=== PATIENT | female | born 1980 | race Caucasian/White ===

== ENCOUNTER 2017-09-22 01:15 | Inpatient (IN) | payer BC ==
[~2017-09-22] VITALS: Ht 162.6 cm; Wt 74.8 kg
[~2017-09-22 01:15] MED LIST: DOCU240C67 PO; IBUP600T22 PO; Lanolin TP; PREN-75 PO; TUCKS TP
[2017-09-22] MEDS ORDERED: LR(*) 1000 ML BAG 1,000 ML IV PRN (01:16)
[2017-09-22 02:05] VITALS: BP 117/84; Ht 162.6 cm; Wt 74.8 kg
[2017-09-22] MEDS ORDERED: FAMOTIDINE(*) 20MG/50ML PREMIX 50 ML IVPB PRN (02:12)
[2017-09-22] MEDS ORDERED: LIDOCAINE 1% LOCAL 300 MG/30ML INJ PRN (02:15)
[2017-09-22] MEDS ORDERED: cefOXitin/DEX(*) 2GM/50ML PREM 50 ML IVPB PRN (02:15)
[2017-09-22] MEDS ORDERED: METOCLOPRAMIDE 10 MG/2 ML SDV IVP PRN (02:15)
[2017-09-22] MEDS ORDERED: fentaNYL CITR 100 MCG/2 ML AMP IVP PRN (02:15)
[2017-09-22] MEDS ORDERED: LIDOCAINE/SOD BICARB 8.4% SYR SC PRN (02:15)
[2017-09-22] MEDS ORDERED: OXYTOCIN 30 UNIT/D5LR 500 ML 500 ML ONE (02:18)
--- NOTE | 2017-09-22 02:23 | History & Physical ---
History of Present Illness Age of Patient: 36 : 3 Para or TPAL: 2 EDC per LMP: Oct 06, 2017 Estimated Gestational Age: 38 Chief Complaint Leaking fluid History of Present Illness Presented with contractions and wondering if her water was broke. Amnisure positive. uncomplicated. Past Medical, Surgical, Family and Obstetric Histories reviewed. Please see ACOG chart. History Allergies: Coded Allergies: No Known Drug Allergies (Unverified , 05/21/16) Social History: Denies Use of Alcohol, tobacco, or recreational drugs. Med Rec Home Meds Active Scripts [Lanolin] 7 GM OINT No Conflict Check, 0 GM TP PRN Y for DISCOMFORT FOR NURSING MOTHERS, TUBE Prov:SANDRA COPPOLA MD 05/22/16 Ibuprofen (IBUPROFEN) 600 Mg Tablet, 600 MG PO Q6H Y for PAIN for 10 Days, TAB Prov:SANDRA COPPOLA MD 05/22/16 Glycerin/Witch Yolanda [place] (PREPARATION H) 1 Pkg Pad, 0 PKG TP PRN Y for PAIN for 10 Days, PAD Prov:SANDRA COPPOLA MD 05/22/16 Docusate Calcium (DOCUSATE CALCIUM) 240 Mg Capsule, 240 MG PO BID for 10 Days, CAPSULE Prov:SANDRA COPPOLA MD 05/22/16 Vit#96/Ferrous Fum/Fa ( TABLET) 1 Each Tablet, 1 EACH PO DAILY for 90 Days, TAB 3 Refills Prov:SANDRA COPPOLA MD 05/22/16 Review of Systems All Systems Reviewed/Normal: Yes, Except as Noted Exam General Exam Vital Signs Vital Signs Date Time Temp Pulse Resp B/P (MAP) Pulse Ox O2 Delivery O2 Flow Rate FiO2 09/22/17 02:05 98.4 68 18 117/84 (95) 96 Room Air General Apperance: Alert/Awake/No Acute Distress Neuro: No Gross deficits Respiratory: No Respiratory Distress Abdomen: Soft, Non-Tender, Non-Distended, Gravid - Non-Tender Integumentary: Skin Intact without Lesions or Rash Psychological: Alert & Oriented X3, Appropriate Mood & Affect Cervical Dialation: 4 Cervical Effacement (%): 70 Station: -2 Presentation: Vertex Fetus Heart Tone Variabilty: Moderate FHT Accelerations: 15X15 FHT Category: I Medical Decision Making VTE Prophylasis: Adult Deep Vein Thrombosis/Pulmonary: No Pharmacological Contraindicati: Pt at Low Risk for VTE Mechanical Contraindications: Pt at Low Risk for VTE Assessment and Plan CASING BUILDER Plan: Routine Labor Care Problems: (1) 38 weeks gestation of Status: Acute (2) Active labor at term Status: Acute RAMIN FARR MD Sep 22, 2017 02:23
[2017-09-22 02:39] LABS: PLATELET COUNT, AUTOMATED 171 K/uL (150-450)
[2017-09-22] MEDS ORDERED: ONDANSETRON 4 MG/2 ML VIAL IVP PRN (03:40)
[2017-09-22] MEDS ORDERED: ACETAMINOPHEN 500 MG TAB PO PRN (03:40)
[2017-09-22] MEDS ORDERED: LIDOCAINE/PF 2% 200MG/10ML AMP 200 MG/10 ML AMPUL EPI PRN (03:45)
[2017-09-22] MEDS ORDERED: LIDO/EPI 2% MPF 1:200,000 20ML EPI PRN (03:45)
[2017-09-22] MEDS ORDERED: FENTANYL/ROPIVACAINE 100 ML BAG EPI PRN (03:45)
[2017-09-22] MEDS ORDERED: EPIDURAL KEYS XX PRN (03:45)
[2017-09-22] MEDS ORDERED: BUPIVACAINE 0.25% MPF INJ EPI PRN (03:45)
[2017-09-22] MEDS ORDERED: BUPIVACAINE 0.5% INJ 30ML VIAL EPI PRN (03:45)
[2017-09-22] MEDS ORDERED: fentaNYL CITR 100 MCG/2 ML AMP IT PRN (03:45)
[2017-09-22] MEDS ORDERED: ePHEDrine 25 MG/5 ML DISP.SYR IVP ONE (03:53)
[2017-09-22] MEDS: LR(*) 1000 ML BAG 1,000 ML IV SCH ×3 (04:01→05:49)
[2017-09-22] MEDS ORDERED: PHENYLEPHRINE/NS/PF 0.4MG/10ML ONE (04:40)
--- NOTE | 2017-09-22 04:53 | Anesthesia OB Pre-Anes Eval ---
History of Present Illness Anesthesia Start Date: Sep 22, 2017 Anesthesia Start Time: 04:00 OB Anesthesia Diagnosis: spontaneous ROM EDC: Oct 06, 2017 : 3 Para: 2 Vital Signs: Vital Signs 09/22/17 02:05 Temp 98.4 Pulse 68 Resp 18 B/P (MAP) 117/84 (95) Pulse Ox 96 O2 Delivery Room Air Pain Ratin Heart Tones: 138 Result Diagram: 09/22/17 0220 Height (Inches): 64.00 Weight (Pounds): 165 BMI Calculated: 28.32 Past Medical History Medical History: no pertinent history Previous Anesthesia: epidural Attended Childbirth Classes?: No Hx Anesthesia Reactions: No Hx Family Anesthesia Reaction: No Home Meds Active Scripts [Lanolin] 7 GM OINT No Conflict Check, 0 GM TP PRN Y for DISCOMFORT FOR NURSING MOTHERS, TUBE Prov:SANDRA COPPOLA MD 05/22/16 Ibuprofen (IBUPROFEN) 600 Mg Tablet, 600 MG PO Q6H Y for PAIN for 10 Days, TAB Prov:SANDRA COPPOLA MD 05/22/16 Glycerin/Witch Yolanda [place] (PREPARATION H) 1 Pkg Pad, 0 PKG TP PRN Y for PAIN for 10 Days, PAD Prov:SANDRA COPPOLA MD 05/22/16 Docusate Calcium (DOCUSATE CALCIUM) 240 Mg Capsule, 240 MG PO BID for 10 Days, CAPSULE Prov:SANDRA COPPOLA MD 05/22/16 Vit#96/Ferrous Fum/Fa ( TABLET) 1 Each Tablet, 1 EACH PO DAILY for 90 Days, TAB 3 Refills Prov:SANDRA COPPOLA MD 05/22/16 Allergies: Coded Allergies: No Known Drug Allergies (Unverified , 05/21/16) Anesthesia OB ROS Neurological: No migraines/headaches, No seizures, No neuropathy, No other ENT: Denies Tooth caps, Denies Loose teeth, Denies Chipped teeth, Denies Dentures, Denies Bridges, Denies Retainers, Denies Veneers, Denies Implants, Denies Tongue ring, Denies Other Pulmonary: No asthma, No smoker (pks/day/yrs), No other Airway Class: ll Cardiovascular ROS: No edema, No arrhythmia, No other GI ROS: clear liquids Last Solids Date: Sep 21, 2017 Last Solids Time: 18:00 ROS: No Herpes, No STD(s), No Liver Disease, No Renal Disease, No Other Endocrine ROS: No diabetes, No gestational diabetes, No thyroid disorder, No other Musculoskeletal ROS: scoliosis ASA Classification: 2 Assessment and Plan Anesthesia Plan: RICHARD BRITTON CRNA Sep 22, 2017 04:53
--- NOTE | 2017-09-22 04:57 | Procedure Note ---
Anesthetic Placement Note Anesthesia Plan: CSE Permit for Anesthesia Signed: Yes Anesthesia Technique: Patient Sitting Anesthesia Prep: Chlorhexidine Interspace: L 4-5 Local Anesthetic: 1% Lidocaine Amount Local - cc's: 3 Anesthesia Needle: 17g Touhkalyani/Jhonnyff Anesthesia Attempts: 1 Loss of Resistance: Normal Saline Depth of DAVE (cm): 5 Epidural Needle Placement: No CSF, No Blood, No Parasthesia Intrathecal Needle: 27 Gauge Pencan Cerebral Spinal Fluid: Yes, Clear Catheter Insertion (cm): 10 Catheter Type: Wilson - Spring Wound Epidural Dressing: Tegaderm, Tape Anesthesia Tray: Lot Number ([id number]), Expiration Date (04/05), Reference Number ([id number]) Anesthesia Medications: Intrathecal Dose: mcg Fentanyl (10), mg Marcaine MPF (2.5), Time (0416) Epidural Test Dose: 1.5 Lido/Epi (1:200,000), Dose - mL (3), Time (0418) Epidural Infusion: 0.2% Ropivicaine, With Fentanyl 2mcg/ml, Start Time: (0437) Epidural Pump Setting: Bolus Dose - mL (6), Lockout - Minutes (20), Maintenance Rate - mL/hr (6), Maximum per Hour - mL (24) Complications: None Comment: hypotension, Ephedrine given, HR increased. Phenylephrine 40 mcg RICHARD SINGH CRNA Sep 22, 2017 04:56
[2017-09-22] MEDS ORDERED: OXYTOCIN 30 UNIT/D5LR 500 ML 500 ML IV PRN (06:38)
[2017-09-22] MEDS: OXYTOCIN 30 UNIT/D5LR 500 ML 500 ML IV PRN ×2 (06:40→15:50)
--- NOTE | 2017-09-22 07:37 | Labor Progress Note ---
Labor Subjective Progress Notes Subjective comfortable with epidural Labor Objective Vital Signs Vital Signs Date Time Temp Pulse Resp B/P (MAP) Pulse Ox O2 Delivery O2 Flow Rate FiO2 09/22/17 02:05 98.4 68 18 117/84 (95) 96 Room Air Cervical Dialation: 6 (rn) Uterine Contractions(Q min): 3 Fetus Heart Tones: 130 FHT Category: I Other Result Diagram: 09/22/17 0220 Assessment and Plan Problems: (1) 38 weeks gestation of Status: Acute (2) Active labor at term Status: Acute Assessment & Plan: making progress anticipate vaginal delivery SAILAJA BONILLA MD Sep 22, 2017 07:37
[2017-09-22] MEDS ORDERED: ACETAMINOPHEN 325 MG TAB PO PRN (10:25)
[2017-09-22] MEDS ORDERED: MAGNESIUM HYDROXIDE* 30ML UDCP PO PRN (10:25)
[2017-09-22] MEDS ORDERED: GLYCERIN/WITCH HAZEL LEAF 1 PK TP PRN (10:25)
[2017-09-22] MEDS ORDERED: HYDROCORTISONE 2.5% CR 30GM TB PR PRN (10:25)
[2017-09-22] MEDS ORDERED: LANOLIN OINT 7 GM TUBE TP PRN (10:25)
[2017-09-22] MEDS ORDERED: HYDROmorphone HCL 2 MG TAB PO PRN (10:25)
[2017-09-22] MEDS ORDERED: BENZOCAINE 20% 60 ML BTL TP PRN (10:25)
--- NOTE | 2017-09-22 10:29 | OB Delivery Note ---
Delivery Note Vaginal Delivery Type: Spont. Vaginal Delivery Delivery Date: Sep 22, 2017 Delivery Time: 10:13 Estimated Gestational Age(wks): 38 Delivery Anesthesia: Epidural Sex: Female Weight (gms): 3188 [place] Apgars: 1 Minute (8), 5 Minute (8) Estimated Blood Loss: 400 Notes: spontaneous labor, received epidural, augmented with pitocin progressed to complete, pushed effectively, delivered without complications. No lacerations Director Patient Accounting in Attendence: No Copies to: SAILAJA BONILLA MD, JOHN MD Sep 22, 2017 10:29
[2017-09-22] MEDS ORDERED: IBUP800T37 PO (10:31)
[2017-09-22] MEDS ORDERED: HYDR2TAB4 PO (10:31)
--- NOTE | 2017-09-22 10:32 | OB/GYN Discharge Summary ---
Discharge Summary Reason for Hosp/Final Diag: (1) 38 weeks gestation of Status: Acute (2) Active labor at term Status: Acute (3) care and examination immediately after delivery Status: Acute Hospital Course & Plan: vaginal delivery on day 1,Pain controlled, Tolerating diet and activity. Baby . Normal lochia. Lates Vital Signs Vital Signs Date Time Temp Pulse Resp B/P (MAP) Pulse Ox O2 Delivery O2 Flow Rate FiO2 09/22/17 02:05 98.4 68 18 117/84 (95) 96 Room Air Weight (Pounds): 165 Result Diagram: 09/22/17 0220 Condition: Improved Discharge: Home, Self Alf Meds Active Scripts Ibuprofen (IBUPROFEN) 800 Mg Tablet, 1 TAB PO Q8H, #30 TAB 0 Refills Take with food every 8 hours. Prov:SAILAJA LEO MD 09/22/17 Hydromorphone Hcl (HYDROMORPHONE HCL) 2 Mg Tablet, 2-4 MG PO Q4H for PAIN, #20 TAB 0 Refills Prov:SAILAJA LEO MD 09/22/17 [Lanolin] 7 GM OINT No Conflict Check, 0 GM TP PRN Y for DISCOMFORT FOR NURSING MOTHERS, TUBE Prov:SANDRA COPPOLA MD 05/22/16 Ibuprofen (IBUPROFEN) 600 Mg Tablet, 600 MG PO Q6H Y for PAIN for 10 Days, TAB Prov:SANDRA COPPOLA MD 05/22/16 Glycerin/Witch Yolanda [place] (PREPARATION H) 1 Pkg Pad, 0 PKG TP PRN Y for PAIN for 10 Days, PAD Prov:SANDRA COPPOLA MD 05/22/16 Docusate Calcium (DOCUSATE CALCIUM) 240 Mg Capsule, 240 MG PO BID for 10 Days, CAPSULE Prov:SANDRA COPPOLA MD 05/22/16 Vit#96/Ferrous Fum/Fa ( TABLET) 1 Each Tablet, 1 EACH PO DAILY for 90 Days, TAB 3 Refills Prov:SANDRA COPPOLA MD 05/22/16 Follow up with: Dr. Leo [phone] Follow up in: 6 wks PP or PO Discharge Diet: As Tolerates Discharge Activity: Pelvic Rest Copies to: SAILAJA LEO MD, JOHN MD Sep 22, 2017 10:32
--- NOTE | 2017-09-22 10:39 | Anesthesia Progress Note ---
Assessment and Plan Anesthesia Plan: CSE Anesthesia Stop Day: Sep 22, 2017 Anesthesia Stop Time: 10:30 Epidural Catheter Removal: Removed Catheter Intact, Yes, Removed by: (RN) Removal Date: Sep 22, 2017 Condition Vital Signs 09/22/17 02:05 Temp 98.4 Pulse 68 Resp 18 B/P (MAP) 117/84 (95) Pulse Ox 96 O2 Delivery Room Air RICHARD SINGH CRNA Sep 22, 2017 10:39
[2017-09-22] MEDS: IBUPROFEN 800 MG TAB PO SCH ×2 (11:25→19:45)
[2017-09-22 17:00] VITALS: BP 108/69
[2017-09-22] MEDS ORDERED: SALINE 0.65% NAS SPR 44 ML BTL PRN (17:10)
[2017-09-22 19:30] VITALS: BP 110/72
[2017-09-22] MEDS: DOCUSATE CALCIUM 240 MG CAP PO SCH (19:45)
[2017-09-22 22:10] VITALS: BP 137/76
[2017-09-23 03:30] VITALS: BP 124/76
[2017-09-23] MEDS: IBUPROFEN 800 MG TAB PO SCH (03:33)
[2017-09-23 07:40] VITALS: BP 119/78
[2017-09-23] MEDS: DOCUSATE CALCIUM 240 MG CAP PO SCH (08:19)
--- NOTE | 2017-09-23 08:41 | OB/GYN Progress Note ---
OB Subjective Progress Notes Subjective Pain controlled, Tolerating diet and activity. Baby . Normal lochia. GI: POS Flatus, NEG Nausea, NEG Vomiting : Voiding Well Pain: Mild OB Objective Physical Exam Vital Signs Date Time Temp Pulse Resp B/P (MAP) Pulse Ox O2 Delivery O2 Flow Rate FiO2 09/23/17 07:40 97.8 83 18 119/78 (92) Room Air 09/22/17 02:05 96 General Appearance: Alert/Awake/No Acute Distress Neurological: No Gross deficits Cardiovascular: Regular Rate and Rhythm Respiratory: No Respiratory Distress, Clear to Auscultation Abdomen: Fundus Firm Extremities: No Edema Integumentary: Skin Intact without Lesions or Rash Psychological: Alert & Oriented X3, Appropriate Mood & Affect Result Diagram: 09/23/17 0612 Assessment and Plan Problems: (1) 38 weeks gestation of Status: Acute (2) Active labor at term Status: Acute (3) care and examination immediately after delivery Status: Acute Assessment & Plan: Pain controlled, Tolerating diet and activity. Baby . Normal lochia. SAILAJA BONILLA MD Sep 23, 2017 08:41
[2017-09-23] MEDS ORDERED: MULTIVITAMINS (PRENATAL) TAB PO SCH (09:00)
[2017-09-23] MEDS ORDERED: INFLUENZA VIRUS VAC 0.5 ML SYR IM ONLY ONE (10:25)
[2017-09-23] MEDS ORDERED: DIPHTH/TETANUS/ACEL. PERTUSSIS IM ONLY ONE (10:25)
[2017-09-23] MEDS ORDERED: MEASLES,MUMP,RUBELLA VAC 0.5ML SUBQ ONE (10:25)
--- NOTE | 2017-09-23 12:54 | Anesthesia Post Eval Note ---
Anesthesia Post Eval Note Vital Signs 09/22/17 09/23/17 02:05 07:40 Temp 97.8 Pulse 83 Resp 18 B/P (MAP) 119/78 (92) Pulse Ox 96 O2 Delivery Room Air Pt able to participate in Eval: Yes Cardiovascular Status: Satisfactory Respiratory Status: Satisfactory Pain Managment: Satisfactory PO Nausea/Vomiting: Satisfactory Temperature Management: Satisfactory Mental Status: Satisfactory, Alert, Oriented X3 Post-Op Hydration Status: Tolerating PO Well, Voiding w/o Difficulty Anesthesia Type: RICHARD BRITTON CRNA Sep 23, 2017 12:54
== END 2017-09-23 11:10 | disposition home or self-care (01) | DRG 775 ==
LOC: OBSVTOIN 01:15 → OB 01:15
PROVIDERS: ADMIT Obstetrics & Gynecology; ATTEND Obstetrics & Gynecology
PROC: 10E0XZZ Delivery of Products of Conception, External Approach (ICD-10-PCS; principal; 2017-09-22)
DX: O80 Encounter for full-term uncomplicated delivery (principal); Z37.0 Single live birth; Z3A.38 38 weeks gestation of pregnancy
CPT/HCPCS: 36415; 84112; 85025; 85027; 86850; 86900; 86901; J2370; J2590; J3010; J7120; S0020

== ENCOUNTER → 2018-01-18 | Outpatient (CLI) | payer OTHER, BC ==
[2017-09-22 02:05] VITALS: BMI 28.3
[~2018-01-18] MED LIST changes: +HYDR2TAB4 PO; +IBUP800T37 PO
== END ==
LOC: LAB 12:10
PROVIDERS: ATTEND Nurse Practitioner
DX: Z02.9 Encounter for administrative examinations, unspecified (principal)
CPT/HCPCS: 36415

== ENCOUNTER 2018-05-04 20:05 | Emergency (ER) | payer BC, OTHER ==
[2017-09-22 02:05] VITALS: Wt 57.6 kg
[~2018-05-04 20:05] MED LIST changes: -PREN-75 PO; +PREN1TAB29 PO
--- NOTE | 2018-05-04 20:22 | ER Report ---
History and Physical Time Seen By MD: 20:22 Hx. of Stated Complaint: pt spoke with dr ohara today on the phone. pt reports spotting since wednesday, in the spotting was pink mucousy. today the spotting became darker today. dr ohara reccomended pt come in for ultra sound tonight. pt reports she is scheduled for an ultrasound on wednesday, but does not want to wait that long. HPI/ROS CHIEF COMPLAINT: vaginal bleeding during early . HISTORY OF PRESENT ILLNESS: This is a 37 year old female. She is estimating 9 weeks . She has been having spotting for two days, seeming to increase from pink mucous to a darker color. She had a quantitative HCG level at Dr. Lindsey's office yesterday and is scheduled to have a second level drawn tomorrow. She is nervous and just wanted to know what was happening. She talked to Dr. Mitul carroll and he recommended coming for ultrasound. No other bleeding or bruising. Had a little loose stools today. Allergies: Coded Allergies: No Known Drug Allergies (Unverified , 05/21/16) Home Meds Active Scripts Vit#96/Ferrous Fum/Fa ( TABLET) 1 Each Tablet, 1 EACH PO DAILY for 90 Days, TAB 3 Refills Prov:SANDRA COPPOLA MD 05/22/16 Discontinued Scripts Ibuprofen (IBUPROFEN) 800 Mg Tablet, 1 TAB PO Q8H, #30 TAB 0 Refills Take with food every 8 hours. Prov:SAILAJA BONILLA MD 09/22/17 Hydromorphone Hcl (HYDROMORPHONE HCL) 2 Mg Tablet, 2-4 MG PO Q4H for PAIN, #20 TAB 0 Refills Prov:SAILAJA BONILLA MD 09/22/17 [Lanolin] 7 GM OINT No Conflict Check, 0 GM TP PRN PRN for DISCOMFORT FOR NURSING MOTHERS, TUBE Prov:SANDRA COPPOLA MD 05/22/16 Glycerin/Witch Yolanda [place] (PREPARATION H) 1 Pkg Pad, 0 PKG TP PRN PRN for PAIN for 10 Days, PAD Prov:SANDRA COPPOLA MD 05/22/16 Docusate Calcium (DOCUSATE CALCIUM) 240 Mg Capsule, 240 MG PO BID for 10 Days, CAPSULE Prov:SANDRA COPPOLA MD 11/4/16 Reviewed Nurses Notes: Yes Hx Smoking: No Smoking Status: Never Smoker Exposure to Second Hand Smoke?: No Hx Substance Use Disorder: No Hx Alcohol Use: No Constitutional Vital Sign - Last 24 Hours 05/04/18 05/04/18 05/04/18 05/04/18 20:05 20:11 20:13 20:20 Temp 97.9 Pulse ??? 90 91 Resp 16 B/P (MAP) 129/89 (102) 129/89 Pulse Ox 97 97 O2 Delivery Room Air 05/04/18 05/04/18 05/04/18 05/04/18 20:30 20:35 20:50 20:55 Pulse 98 86 83 B/P (MAP) 122/90 (101) Pulse Ox 97 97 95 05/04/18 05/04/18 05/04/18 05/04/18 21:00 21:10 21:25 21:30 Pulse 85 107 B/P (MAP) 112/73 (86) 111/80 (90) Pulse Ox 97 98 05/04/18 05/04/18 05/04/18 05/04/18 21:40 21:55 22:00 22:10 Pulse 94 94 87 B/P (MAP) 107/78 (88) Pulse Ox 97 95 94 05/04/18 05/04/18 05/04/18 05/04/18 22:25 22:30 22:40 22:45 Pulse 85 86 84 B/P (MAP) 109/72 (84) Pulse Ox 95 96 95 Physical Exam General Appearance: Alert, no acute distress, Skin: No bruising or lesions. Pelvic exam deferred at this time after patient had her ultrasound. Medical Decision Making EKG/Imaging Imaging ultrasound: Indication: First trimester bleeding. Technique: Transvaginal imaging, with Doppler. Comparison: None. Findings: A gestational sac is present in the upper endometrial cavity. The mean sac diameter is 1.5 cm, corresponding to 6 weeks 3 days. A yolk sac is also present. No pole or cardiac activity are identified at the present time. There may be minimal subchorionic hemorrhage adjacent to the sac. The uterus is otherwise unremarkable. The right ovary measures 3.3 x 2.4 x 2.0 cm. There appears to be a small corpus luteum cyst. The left ovary measures 2.7 x 1.3 x 1.2 cm and appears un remarkable. Doppler evaluation demonstrates no evidence of ovarian torsion. No adnexal mass or fluid collection is identified. There is minimal free fluid in the cul-de-sac. IMPRESSION: A gestational sac is present in the endometrial cavity. The mean sac diameter corresponds to a gestational age of 6 weeks 3 days. However, neither a pole nor cardiac activity are observed at the present time. Additional clinical correlation and short interval follow-up are recommended. Report Dictated By: Jeremi Cox MD at 05/04/2018 10:12 PM ED Course/Re-evaluation ED Course Reviewed the findings of ultrasound with the patient. Appears that this is a non-viable . She will follow-up with Dr. Lindsey's office tomorrow as planned. Decision to Disposition Date: May 04, 2018 Decision to Disposition Time: 22:56 Depart Departure Latest Vital Signs Vital Signs Date Time Temp Pulse Resp B/P (MAP) Pulse Ox O2 Delivery O2 Flow Rate FiO2 05/04/18 22:45 84 95 05/04/18 22:30 109/72 (84) 05/04/18 20:13 97.9 16 Room Air Impression: Primary Impression: Threatened Condition: Condition Unchanged Disposition: HOME OR SELF-CARE Patient Instructions: Threatened Miscarriage (ED) Additional Instructions: Follow-up with Dr. Lindsey's office tomorrow as planned for repeat labs. Further instructions per their office. PJ SOTELO MD May 04, 2018 20:22
--- NOTE | 2018-05-04 22:23 | RADIOLOGY IMAGING REPORT ---
FACILITY: [facility] PATIENT NAME: Sujata Sparrow : 1980 MR: [id number] V: [id number] EXAM DATE: ORDERING PHYSICIAN: PJ SOTELO TECHNOLOGIST: Location: [facility] Patient: Sujata Sparrow : 1980 Visit/Account:[id number] Date of Sevice: 05/04/2018 ultrasound: Indication: First trimester bleeding. Technique: Transvaginal imaging, with Doppler. Comparison: None. Findings: A gestational sac is present in the upper endometrial cavity. The mean sac diameter is 1.5 cm, corres ponding to 6 weeks 3 days. A yolk sac is also present. No pole or cardiac activity are identifi ed at the present time. There may be minimal subchorionic hemorrhage adjacent to the sac. The uterus is otherwise unremarkable. The right ovary measures 3.3 x 2.4 x 2.0 cm. There appears to be a small corpus luteum cyst. The left ovary measures 2.7 x 1.3 x 1.2 cm and appears unremarkable. Doppler evaluation demonstrates no evidence of ovarian torsion. No adnexal mass or fluid collection is identified. There is minimal free fluid in the cul-de-sac. IMPRESSION: A gestational sac is present in the endometrial cavity. The mean sac diameter corresponds to a gestational age of 6 weeks 3 days. However, neither a pole nor cardiac activity are obser gomez at the present time. Additional clinical correlation and short interval follow-up are recommended . Report Dictated By: Jeremi Cox MD at 05/04/2018 10:12 PM Report E-Signed By: Jeremi Cox MD at 05/04/2018 10:20 PM WSN:[id number]
[2018-05-04 22:30] VITALS: BP 109/72
== END 2018-05-04 23:06 | disposition home or self-care (01) ==
LOC: ER 21:03
DX: O20.0 Threatened abortion (principal); Z3A.01 Less than 8 weeks gestation of pregnancy
CPT/HCPCS: 76817; 99284

== ENCOUNTER 2019-01-20 14:23 | Observation (INO) | payer BC ==
[~2019-01-20] VITALS: Ht 162.6 cm; Wt 72.6 kg
[2019-01-20 14:47] VITALS: BP 116/62; Ht 162.6 cm; Wt 72.6 kg
[2019-01-20] MEDS ORDERED: LR(*) 1000 ML BAG 1,000 ML IV PRN (15:05)
--- NOTE | 2019-01-20 15:25 | History & Physical ---
History of Present Illness Age of Patient: 38 : 5 Para or TPAL: 3013 EDC per LMP: Mar 06, 2019 EDC per U/S: Mar 06, 2019 Estimated Gestational Age: 33.4 Chief Complaint abdominal pain and tightening History of Present Illness Ms. Sparrow is a 38yo , JOSE 03/06/19, at 33.4 who presents to L&D triage with c/o of abdominal pain since about 10am this morning. She reports that she was in her usual state of health until she was coming back from a walk to the park. She reports that she noted sharp pain in her abdomen, points to her fundus which is in the epigastric region. She reports that the pain was significant enough that when she got home from her walk she got on all fours on her couch to help ease it. She reports that it seemed to help, but that she still feels discomfort in that area and some general abdominal intermittent tightening, like a contraction. She denies leakage of fluid, denies vaginal bleeding. Reports good movement. She denies abdominal trauma. She denies dysuria, frequency or urgency. She denies nausea/diarrhea/vomiting. No fevers/ chills. Antepartum record not available. 1. AMA History Patient's Blood Type: unknown, chart not available, will draw and hold Rubella Status: unknown Group B Strep Screen: Unknown Obstetrical History: FT x 3, blighted ovum x 1, uncomplicated pregnancies per patient report Past Medical History: Pt denies asthma, diabetes, HTN. Reports h/o L ACL repair, no complications Allergies: Coded Allergies: No Known Drug Allergies (Unverified , 05/21/16) Social History: Denies Use of Alcohol, tobacco, or recreational drugs. Reports feels safe in home, denies IPV. Med Rec Home Meds Active Scripts Vit#96/Ferrous Fum/Fa ( TABLET) 1 Each Tablet, 1 EACH PO DAILY for 90 Days, TAB 3 Refills Prov:SANDRA COPPOLA MD 05/22/16 Review of Systems Constitutional: No Fever, No Weight Loss, No Weight Gain, No Chills, No Night Sweats, No Other Neurological: No Syncope, No Confusion, No Weakness, No Dizziness, No Slurred Speech, No Other ENT: No Hearing Loss, No Sinus Congestion, No Sore Throat, No Ear Ache, No Tinnitus, No Other Cardiovascular: No Chest Pain, No Palpitations, No Orthostatic Hypotension, No Other Respiratory: No Shortness of Breath, No Cough, No Wheezing, No Other Gastrointestinal: Abdominal Pain (as described in HPI) Genitourinary: No Dysuria, No Hematuria, No Urinary Incontinence, No Other Musculoskeletal: No Pain, No Sprain, No Strain, No Impaired Mobility, No Other Psychiatric: No Depression, No Anxiety, No Other Exam General Exam Vital Signs Vital Signs Date Time Temp Pulse Resp B/P (MAP) Pulse Ox O2 Delivery O2 Flow Rate FiO2 01/20/19 14:47 97.5 90 16 116/62 (80) 96 Room Air General Apperance: Alert/Awake/No Acute Distress Neuro: No Gross deficits Cardiovascular: Regular Rate and Rhythm Respiratory: Clear to Auscultation Abdomen: Soft, Non-Tender, Non-Distended, Gravid - Non-Tender Extremities: No Cyanosis,Clubbing or Edema Integumentary: Skin Intact without Lesions or Rash Psychological: Alert & Oriented X3, Appropriate Mood & Affect Presentation: Vertex Uterine Contractions(Q min): 0 Uterine Contraction Strength: Mild UC Resting Tone: Soft Fetus Feeling Movement?: Yes Estimated Weight(grams): 2653 (BY ULTRASOUND) Heart Tones: 150 Heart Tone Variabilty: Moderate FHT Accelerations: 10X10 FHT Decelerations: None FHT Category: I Medical Decision Making Data Points UA negative Imaging Ultrasound/Imaging transvaginal cervical length: 3.72cm -4.03cm vertex, efw: 2653g ARMANI: 16.3 Pre-Admit Course Medical Record Review: No (not available) VTE Prophylasis: Adult Pharmacological Contraindicati: Pt at Low Risk for VTE Mechanical Contraindications: Pt at Low Risk for VTE Assessment and Plan Problems: (1) contractions Status: Acute Assessment & Plan: 38yo at 33.4 with contractions. status reassuring. Urinalysis reassuring. Patient feels better after hydration. No e/o labor, placental abruption, pre-eclampsia. -allow discharge home with labor precautions -has f/u scheduled with Dr. Lindsey , 01/26/19. KEEGAN GARCIA MD Jan 20, 2019 15:25
--- NOTE | 2019-01-20 16:27 | OB/GYN Discharge Summary ---
Discharge Summary Reason for Hosp/Final Diag: (1) contractions Status: Acute Hospital Course & Plan: 38yo at 33.4 with contractions. status reassuring. Urinalysis reassuring. Patient feels better after hydration. No e/o labor, placental abruption, pre-eclampsia. -allow discharge home with labor precautions -has f/u scheduled with Dr. Lindsey , 01/26/19. Lates Vital Signs Vital Signs Date Time Temp Pulse Resp B/P (MAP) Pulse Ox O2 Delivery O2 Flow Rate FiO2 01/20/19 14:47 97.5 90 16 116/62 (80) 96 Room Air Weight (Pounds): 160 Condition: Improved Discharge: Home Home Meds Active Scripts Vit#96/Ferrous Fum/Fa ( TABLET) 1 Each Tablet, 1 EACH PO DAILY for 90 Days, TAB 3 Refills Prov:SANDRA COPPOLA MD 05/22/16 Follow up with: Dr. Lindsey [phone] Follow up in: 3-4 days, Keep scheduled appoint Discharge Diet: As Tolerates Discharge Activity: As Tolerates KEEGAN GARCIA MD Jan 20, 2019 16:27
--- NOTE | 2019-01-20 16:33 | RADIOLOGY IMAGING REPORT ---
FACILITY: [facility] [place] PATIENT NAME: Sujata Sparrow : 1980 MR: [id number] V: [id number] EXAM DATE: ORDERING PHYSICIAN: KEEGAN GARCIA TECHNOLOGIST: Location: [facility] [place] Patient: Sujata Sparrow : 1980 Visit/Account:[id number] Date of Sevice: 01/20/2019 OB LIMITED History: labor ADDITIONAL HISTORY: Estimated gestational age 33 weeks and 4 days by LMP COMPARISON STUDIES: none FINDINGS: Intrauterine gestations: one presentation: Vertex heart rate: 144 bpm Amniotic fluid volume: ARMANI 16.3 cm; MVP 4.5 cm Placenta: Fundal. No evidence of previa. Maternal adnexa: negative Cervix: Cervix is closed and measures 3.7 cm in length. No evidence of effacement. Anatomic Survey: A survey was not performed. Biometrics: BPD: 8.5 cm corresponding to 34 weeks and 2 days. 64th Percentile HC: 30.7 cm corresponding to 34 weeks and 2 days 30th Percentile AC: 31.5 cm corresponding to 35 weeks and 3 days 93rd Percentile FL: 7.1 cm corresponding to 36 weeks and 2 days 94th Percentile Composite sonographic age 35 weeks and 1 day compared to menstrual dates of 33 weeks and 4 days Estimated weight (EFW): 2653 grams +/- 388 grams . 90th percentile based on clinical dates. IMPRESSION: Single living intrauterine gestation in vertex presentation. Presuming given menstrual dates are accurate, Borderline macrosomia. Recommend sonographic follow-up. Cervix is closed and there is no evidence of effacement. Report Dictated By: Reymundo Bowman MD at 01/20/2019 4:19 PM Report E-Signed By: Reymundo Bowman MD at 01/20/2019 4:27 PM WSN:[id number]
== END 2019-01-20 16:19 | disposition home or self-care (01) ==
LOC: OB 14:23
PROVIDERS: ADMIT Obstetrics & Gynecology; ATTEND Obstetrics & Gynecology
DX: O47.03 False labor before 37 completed weeks of gestation, third trimester (principal); R10.9 Unspecified abdominal pain; Z3A.33 33 weeks gestation of pregnancy
CPT/HCPCS: 59025; 76815; 76817; 81001; G0378; G0379; J7120

== ENCOUNTER → 2019-02-21 | Outpatient (REF) | payer BC ==
[2019-01-20 14:47] VITALS: BMI 27.5
== END ==
LOC: ZZSENDIN 10:43
PROVIDERS: ATTEND Nurse Practitioner Family
DX: O42.113 Preterm premature rupture of membranes, onset of labor more than 24 hours following rupture, third trimester (principal)
CPT/HCPCS: 84112

== ENCOUNTER 2019-02-22 16:30 | Inpatient (IN) | payer BC ==
[~2019-02-22] VITALS: Ht 165.1 cm; Wt 75.7 kg
[2019-03-02] MEDS ORDERED: FAMOTIDINE(*) 20MG/50ML PREMIX 50 ML IVPB PRN (05:43)
[2019-03-02] MEDS ORDERED: OXYTOCIN 30 UNIT/NS 500 ML 500 ML IV PRN ×2 (05:43)
[2019-03-02] MEDS ORDERED: DLR(*) 1000 ML BAG 1,000 ML IV PRN (05:43)
[2019-03-02] MEDS ORDERED: cefOXitin/DEX(*) 2GM/50ML PREM 50 ML IVPB PRN (05:45)
[2019-03-02] MEDS ORDERED: ONDANSETRON 4 MG/2 ML VIAL IVP PRN (05:45)
[2019-03-02] MEDS ORDERED: fentaNYL CITR 100 MCG/2 ML AMP IVP PRN (05:45)
[2019-03-02] MEDS ORDERED: FLUSH 10 ML SYR IVP PRN (05:45)
[2019-03-02] MEDS ORDERED: METOCLOPRAMIDE 10 MG/2 ML SDV IVP PRN (05:45)
[2019-03-02] MEDS ORDERED: LIDOCAINE 1% LOCAL 300 MG/30ML INJ PRN (05:45)
[2019-03-02] MEDS ORDERED: ACETAMINOPHEN 325 MG TAB PO PRN ×2 (05:45→14:20)
[2019-03-02 06:20] LABS: PLATELET COUNT, AUTOMATED 211 K/uL (150-450)
[2019-03-02] MEDS: LR(*) 1000 ML BAG 1,000 ML IV PRN ×3 (06:30→13:15)
[2019-03-02 06:44] VITALS: BP 117/71; Ht 165.1 cm; Wt 75.7 kg
[2019-03-02] MEDS ORDERED: LIDO/EPI 2% MPF 1:200,000 20ML EPI PRN (07:05)
[2019-03-02] MEDS ORDERED: FENTANYL/ROPIVACAINE 100 ML BAG EPI PRN (07:05)
[2019-03-02] MEDS ORDERED: fentaNYL CITR 100 MCG/2 ML AMP IT PRN (07:05)
[2019-03-02] MEDS ORDERED: BUPIVACAINE 0.25% MPF INJ EPI PRN (07:05)
[2019-03-02] MEDS ORDERED: BUPIVACAINE 0.5% INJ 30ML VIAL EPI PRN (07:05)
[2019-03-02] MEDS ORDERED: LIDOCAINE/PF 2% 200MG/10ML AMP 200 MG/10 ML AMPUL EPI PRN (07:05)
--- NOTE | 2019-03-02 08:31 | Anesthesia OB Pre-Anes Eval ---
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....history of difficult epidural placement") Surgical History: noncontributory, other (ACL) Previous Anesthesia: general, epidural Hx Anesthesia Reactions: No Hx Family Anesthesia Reaction: No Current Medications: pitocin Past Complications: gestational hypertention, other (Miscarriage) Home Meds Active Scripts Vit#96/Ferrous Fum/Fa ( TABLET) 1 Each Tablet, 1 EACH PO DAILY for 90 Days, TAB 3 Refills Prov:SANDRA COPPOLA MD 05/22/16 Allergies: Coded Allergies: No Known Drug Allergies (Unverified , 05/21/16) Anesthesia OB ROS Neurological: No migraines/headaches, No seizures, No neuropathy, No other Contacts Statement: none ENT: Denies Tooth caps, Denies Loose teeth, Denies Chipped teeth, Denies Dentures, Denies Bridges, Denies Retainers, Denies Veneers, Denies Implants, Denies Tongue ring, Denies Other Pulmonary: No asthma, No smoker (pks/day/yrs), No other Airway Class: ll (Thyromental = 3-4 cm, Mouth opening = 3-4 cm) Cardiovascular ROS: No edema, No arrhythmia, No other GI ROS: clear liquids Last Solids Date: Mar 01, 2019 Last Solids Time: 18:00 ROS: No Herpes, No STD(s), No Liver Disease, No Renal Disease, No Other Endocrine ROS: No diabetes, No gestational diabetes, No thyroid disorder, No other Musculoskeletal ROS: No low back pain, No low back injury; scoliosis ("I have a double curve to my spine....they have had trouble with the epidural in the past"); No other ASA Classification: 2 Assessment and Plan Anesthesia Plan: LEB Assessment: Able to palpate spine landmarks. Right thoracic and left lumbar curves to spine noted. Assessment Heart: RRR, no MRG, no edema, no syncope, no CP/SOB Resp: CTA bilateral Neuro: normal RAKEL ARNDT CRNA Mar 02, 2019 08:31
--- NOTE | 2019-03-02 08:40 | Procedure Note ---
Anesthetic Placement Note Anesthesia Plan: LEB Permit for Anesthesia Signed: Yes Anesthesia Technique: Patient Sitting Anesthesia Prep: Chlorhexidine (Betadine also used since no tint/dye in chlorhexidine) Interspace: L 4-5 Local Anesthetic: 1% Lidocaine, 25 Gauge Needle Amount Local - cc's: 2 Anesthesia Needle: 17g Touhy/Schliff Anesthesia Attempts: 1 Loss of Resistance: Normal Saline Depth of DAVE (cm): 5 (Needle directed slightly left of perpendicular to skin at L4-5) Epidural Needle Placement: No CSF, No Blood, No Parasthesia Catheter Insertion (cm): 6 (cathether secured 11 cm at skin. Catheter clamp connector taped shut and to tubing.) Catheter Type: Wilson - Spring Wound Epidural Dressing: Tegaderm, Tape (Mefix and Silk ), Other (Benzoin) Anesthesia Tray: Lot Number ([id number]), Expiration Date (04/17/2020), Reference Number ([id number]) Comment: Tolerated and cooperated very well Anesthesia Medications: Epidural Test Dose: 1.5 Lido/Epi (1:200,000), Dose - mL (3), Time (0743), Negative Epidural Loading Dose: Dose - ml (7), Time (0746), Other (0.5% lidocaine load) Epidural Infusion: 0.2% Ropivicaine, With Fentanyl 2mcg/ml, Start Time: (0801), Other (6 mL bolus of infusion solution given at time of pump start) Epidural Pump Setting: Bolus Dose - mL (6), Lockout - Minutes (15), Maintenance Rate - mL/hr (5), Maximum per Hour - mL (23) Complications: None (Patient instructed on use of PCEA button. Also instructed on signs and symptoms of complications and when to notify the RN / Anesthesia provider. Verbalizes understanding) Comment: 5 minutes after loading dose, pt reports relief of pain / no pain with contractions. C/O slight nausea, BP 100s/70s, Phenylephrine 150 mcg over 5 mins (50mcg at a time), reports nausea resolved. RAKEL ARNDT CRNA Mar 02, 2019 08:40
--- NOTE | 2019-03-02 08:51 | History & Physical ---
History of Present Illness Age of Patient: 38 : 5 Para or TPAL: 3 EDC per LMP: Mar 08, 2019 Estimated Gestational Age: 39.1 Chief Complaint Labor induction History of Present Illness Sujata presents for scheduled IOL at term with favorable cervix. Her has been uncomplicated and she has been feeling fine. Past Medical, Surgical, Family and Obstetric Histories reviewed. Please see ACOG chart. History Allergies: Coded Allergies: No Known Drug Allergies (Unverified , 05/21/16) Social History: Denies Use of Alcohol, tobacco, or recreational drugs. Reports feels safe in home, denies IPV. Med Rec Home Meds Active Scripts Vit#96/Ferrous Fum/Fa ( TABLET) 1 Each Tablet, 1 EACH PO DAILY for 90 Days, TAB 3 Refills Prov:SANDRA COPPOLA MD 05/22/16 Review of Systems All Systems Reviewed/Normal: Yes, Except as Noted Exam General Exam Vital Signs Vital Signs Date Time Temp Pulse Resp B/P (MAP) Pulse Ox O2 Delivery O2 Flow Rate FiO2 03/02/19 06:44 97.7 86 18 117/71 (86) 97 Room Air General Apperance: Alert/Awake/No Acute Distress Neuro: No Gross deficits Cardiovascular: Regular Rate and Rhythm Respiratory: No Respiratory Distress, Clear to Auscultation Abdomen: Soft, Non-Tender, Non-Distended Musculoskeletal: No Weakness/Pain Extremities: No Cyanosis,Clubbing or Edema Integumentary: Skin Intact without Lesions or Rash Psychological: Alert & Oriented X3, Appropriate Mood & Affect Cervical Dialation: 6 Cervical Effacement (%): 100 Cervical Consistency: Soft Cervical Position: Mid Station: -2 Presentation: Vertex Fetus Heart Tone Variabilty: Moderate FHT Accelerations: 15X15 FHT Category: I Medical Decision Making Data Points Result Diagram: 03/02/19 0605 VTE Prophylasis: Adult Deep Vein Thrombosis/Pulmonary: No Pharmacological Contraindicati: Pt at Low Risk for VTE Mechanical Contraindications: Pt at Low Risk for VTE Assessment and Plan RN RESIDENTIAL Plan: Routine Labor/Induct Care Problems: (1) 39 weeks gestation of Assessment & Plan: Pitocin induction and AROM with clear fluid. Expecting . RAMIN FARR MD Mar 02, 2019 08:51
[2019-03-02] MEDS ORDERED: INFLUENZA VIRUS VAC 0.5ML SYR IM ONLY ONE (14:20)
[2019-03-02] MEDS ORDERED: MAGNESIUM HYDROXIDE* 30ML UDCP PO PRN (14:20)
[2019-03-02] MEDS ORDERED: HYDROCORTISONE 2.5% CR 30GM TB PR PRN (14:20)
[2019-03-02] MEDS ORDERED: GLYCERIN/WITCH HAZEL LEAF 1 PK TP PRN (14:20)
[2019-03-02] MEDS ORDERED: BENZOCAINE 20% 60 ML BTL TP PRN (14:20)
[2019-03-02] MEDS ORDERED: APAP/HYDROCODONE 325/5 TAB PO PRN (14:20)
[2019-03-02] MEDS ORDERED: LANOLIN OINT 7 GM TUBE TP PRN (14:20)
--- NOTE | 2019-03-02 14:22 | Anesthesia Progress Note ---
Progress/Maintenance Anesthesia Note Date: Mar 02, 2019 Anesthesia Note Time: 11:00 Pain Intensity: 1 Pump: On Pump Rate (ML/HR): 5 Sensory Level: T7-8 Motor Level: Bending Knees-Bilateral Position: Right Assessment and Plan Anesthesia Plan: LEB Assessment: Epidural working well per patient RAKEL ARNDT CRNA Mar 02, 2019 14:22
--- NOTE | 2019-03-02 14:31 | OB Delivery Note ---
Delivery Note Vaginal Delivery Type: Spont. Vaginal Delivery Delivery Date: Mar 02, 2019 Delivery Time: 14:02 Estimated Gestational Age(wks): 39.1 Delivery Anesthesia: Epidural Sex: Female Infant Weight (gms): 3738 Apgars: 1 Minute (9), 5 Minute (10) Delivery Complications: Shoulder Dystocia (mild, resolved with suprapubic pressure and collapsing the shoulders across the AP diameter) Notes: Presented for IOL at term with favorable cervix. Was 4 cm upon arrival and 5 cm by 0800. Pitocin induction and 7 cm by 1130. Was then 10 cm by 1234 but position was posterior and 0 station requiring laboring down still. Began pushing around 1340 and baby rotated to CONSUELO. As baby began , rapid descent slowed initially and a turtle sign became evident. Initial attempts to deliver the anterior shoulder was met with significant resistance. Pt's bed was dropped down and pt placed in Lilliam position while suprapubic pressure was aggressively applied. I was able to feel the anterior shoulder was direct anterior behind the pubis symphysis. It was swept toward the pts left side to put it in an oblique orientation. Over the next maternal push, the anterior shoulder began making progress. No excessive force was applied to the 's head or pulling utilized. The baby delivered with maternal pushing and the aforementioned manipulations. FROM of both extremities upon . Placenta delivered spontaneously and intact. No lacerations. 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
--- NOTE | 2019-03-02 14:34 | Anesthesia Progress Note ---
Progress/Maintenance Anesthesia Note Date: Mar 02, 2019 Anesthesia Note Time: 14:20 Pump: Off Motor Level: Bending Knees-Bilateral Position: Semi-Fowlers Assessment and Plan Assessment: Epidural worked well through labor and delivery. Delivery at 1402. Epidural stopped Anesthesia Stop Day: Mar 02, 2019 Anesthesia Stop Time: 14:02 Epidural Catheter Removal: Removed Catheter Intact, Yes, Removed by: (RN) Removal Date: Mar 02, 2019 RAKEL ARNDT CRNA Mar 02, 2019 14:34
[2019-03-02] MEDS: IBUPROFEN 800 MG TAB PO SCH ×2 (15:19→23:36)
[2019-03-02 18:28] VITALS: BP 103/56
[2019-03-02 20:00] VITALS: BP 111/68
[2019-03-02] MEDS: DOCUSATE CALCIUM 240 MG CAP PO SCH (23:37)
[2019-03-03 01:00] VITALS: BP 113/60
[2019-03-03 05:45] VITALS: BP 114/70
[2019-03-03 07:00] VITALS: BP 110/69
[2019-03-03] MEDS: DOCUSATE CALCIUM 240 MG CAP PO SCH ×2 (07:53→19:51)
[2019-03-03] MEDS: IBUPROFEN 800 MG TAB PO SCH ×2 (07:53→14:53)
--- NOTE | 2019-03-03 08:21 | OB/GYN Progress Note ---
OB Subjective Progress Notes Subjective Doing well. No problems. Ready to go home. GI: NEG Nausea : Voiding Well Pain: Mild OB Objective Physical Exam Vital Signs Date Time Temp Pulse Resp B/P (MAP) Pulse Ox O2 Delivery O2 Flow Rate FiO2 03/03/19 05:45 97.2 67 18 114/70 (85) 95 Room Air Intake and Output 03/03/19 07:04 Intake Total 2833 ml Output Total 500 ml Balance 2333 ml Intake Oral 0 ml IV Total 2833 ml Output Urine Total 500 ml # Voids 4 General Appearance: Alert/Awake/No Acute Distress Neurological: No Gross deficits Cardiovascular: Normal Rhythm & Peripheral Pulses, Regular Rate and Rhythm Respiratory: No Respiratory Distress, Clear to Auscultation Abdomen: Soft, Non-Tender, Non-Distended, Fundus Firm, Non-Tender Extremities: No Cyanosis,Clubbing or Edema Integumentary: Skin Intact without Lesions or Rash Psychological: Alert & Oriented X3, Appropriate Mood & Affect Result Diagram: 03/03/19 0604 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 Home later. RAMIN FARR MD Mar 03, 2019 08:21
[2019-03-03] MEDS ORDERED: IBUP800T37 PO (08:22)
--- NOTE | 2019-03-03 08:24 | Short(Outpt) Discharge Summary ---
Discharge Summary Reason for Hosp/Final Diag: (1) 39 weeks gestation of (2) care and examination immediately after delivery Hospital Course & Plan: Routine care today. Home later. 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
[2019-03-03 10:34] VITALS: BP 106/60
[2019-03-03] MEDS ORDERED: MEASLES,MUMP,RUBELLA VAC 0.5ML SUBQ ONE (14:20)
[2019-03-03] MEDS ORDERED: DIPHTH/TETANUS/ACEL. PERTUSSIS IM ONLY ONE (14:20)
[2019-03-03 19:14] VITALS: BP 117/80
== END 2019-03-03 20:00 | disposition home or self-care (01) | DRG 807 ==
LOC: OB 03-02 05:42
PROVIDERS: ADMIT Obstetrics & Gynecology; ATTEND Obstetrics & Gynecology
PROC: 10E0XZZ Delivery of Products of Conception, External Approach (ICD-10-PCS; principal; 2019-03-02)
PROC: 10907ZC Drainage of Amniotic Fluid, Therapeutic from Products of Conception, Via Natural or Artificial Opening (ICD-10-PCS; 2019-03-02)
PROC: 3E033VJ Introduction of Other Hormone into Peripheral Vein, Percutaneous Approach (ICD-10-PCS; 2019-03-02)
DX: O66.0 Obstructed labor due to shoulder dystocia (principal); Z37.0 Single live birth; Z3A.39 39 weeks gestation of pregnancy
CPT/HCPCS: 36415; 85025; 85027; 86703; 86850; 86900; 86901; J2590; J7120